=== PATIENT | male | born 1985 ===

== ENCOUNTER 2024-10-03 11:12 | Emergency (ER) | payer SELFPAY ==
[~2024-10-03] VITALS: Ht 177.8 cm; Wt 99.8 kg
[~2024-10-03 11:12] MED LIST: LOPE2C PO; ONDA4ODT MM; Prozac20 MG PO
[2024-10-03 11:34] VITALS: BP 139/109
[2024-10-03] MEDS ORDERED: NAPR500 PO (12:12)
[2024-10-03] MEDS ORDERED: CYCL10 PO (12:12)
[2024-10-03] MEDS ORDERED: AMOCLA875 PO (12:12)
[2024-10-03] MEDS ORDERED: PRED20 PO (12:12)
== END 2024-10-03 12:23 | disposition home or self-care (01) ==
LOC: ER 11:12
DX: M54.12 Radiculopathy, cervical region (principal); K02.9 Dental caries, unspecified
CPT/HCPCS: 72040; 73030; 93005; 93010; 99284-25; A9270